=== PATIENT | male | born 1995 | race Caucasian/White ===

== ENCOUNTER 2020-01-10 15:09 | Emergency (ER) | payer SELFPAY ==
[2020-01-10 15:39] VITALS: BP 165/108; PULSE 109; O2SAT 97
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
[2020-01-10 16:07] LABS: Appearance CLEAR (CLEAR); Bilirubin NEGATIVE (NEGATIVE); Blood NEGATIVE Ery/ul (0-5); Glucose NEGATIVE (NEGATIVE); Ketones NEGATIVE (NEGATIVE); Leukocyte Esterase NEGATIVE (NEGATIVE); Mucus SLIGHT /HPF (NEGATIVE); Nitrite NEGATIVE (NEGATIVE); Protein,Urine Dip NEGATIVE (Negative); Specific Gravity 1.005 (1.005-1.025); Urobilinogen NEGATIVE mg/dL (0-1)
[2020-01-10 16:14] LABS: Amphetamine,Urine NEGATIVE (NEGATIVE); Barbiturate,Urine NEGATIVE (NEGATIVE); Benzodiazepine,Urine NEGATIVE (NEGATIVE); Cocaine,Urine NEGATIVE (NEGATIVE); Methadone,Urine NEGATIVE (NEGATIVE); Opiate,Urine NEGATIVE (NEGATIVE); PCP,Urine NEGATIVE (NEGATIVE); THC,Urine NEGATIVE (NEGATIVE)
== END 2020-01-10 16:20 | disposition home or self-care (01) ==
LOC: ED 15:09
DX: Z02.89 Encounter for other administrative examinations (principal)
CPT/HCPCS: 80307; 81001; 99283

== ENCOUNTER 2023-11-09 16:38 | Emergency (ER) | payer MEDICAID ==
[2023-11-09] MEDS ORDERED: MORPHINE SULFATE 2 MG INJ ONE (17:18)
[2023-11-09] MEDS ORDERED: Sodium Chloride 0.9% 1000 ML 1,000 ML ONE (17:18)
[2023-11-09] MEDS ORDERED: Zofran 4 MG/2 ML VIAL ONE (17:18)
[2023-11-09 17:21] LABS: Absolute Neutrophil Ct (ANC) 10.43 x10^3/uL (1.78-5.38); BASOPHIL % 0.2 % (0.2-1.2); Basophil (Absolute #) 0.03 x10^3/uL (0.01-0.08); Eosinophil % 0.6 % (0.8-7.0); Eosinophil (Absolute #) 0.08 x10^3/uL (0.04-0.54); Hematocrit 48.8 % (40.1-51.0); IMMATURE GRAN # 0.05 x10^3u/L (0.001-0.031); IMMATURE GRAN % 0.4 % (0.001-0.429); Lymphocyte (Absolute #) 1.47 x10^3/uL (1.32-3.57); Lymphocytes % 11.6 % (21.8-53.1); Mean Cell Volume 88.6 fL (79.0-92.2); Mean Corpuscular Hemoglobin 30.9 pg (25.7-32.2); Mean Corpuscular Hgb Concent. 34.8 g/dL (32.3-36.5); Mean Platelet Volume 10.5 fL (9.4-12.4); Monocyte (Absolute #) 0.59 x10^3/uL (0.30-0.82); Monocytes % 4.7 % (5.3-12.2); Neutrophil % 82.5 % (34.0-67.9); Platelet Count 428 x10^3/uL (163-337); Red Blood Count 5.51 x10^6/uL (4.63-6.08); Red Cell Distribution Width 12.6 % (11.6-14.4); White Blood Count 12.7 x10^3/uL (4.23-9.07)
[2023-11-09] MEDS: Sodium Chloride 0.9% 1000 ML 1,000 ML IV STA (17:21)
[2023-11-09] MEDS: Zofran 4 MG/2 ML VIAL IV ONE (17:23)
[2023-11-09] MEDS: MORPHINE SULFATE 2 MG INJ IV ONE (17:24)
[2023-11-09 17:25] LABS: ANION GAP 19.6 MEQ/L (5-15); BILIRUBIN,TOTAL 1.8 mg/dL (0.2-1.3); Calcium 9.8 mg/dL (8.4-10.2); Creatinine 1 1.07 mg/dL (0.66-1.25); EST GLOMERULAR FILTRATION RATE 95.7 ML/MIN; Potassium 3.8 mmol/L (3.5-5.1); Total Protein 8.4 g/dL (6.3-8.2)
[2023-11-09 17:57] LABS: Amphetamine,Urine NEGATIVE (NEGATIVE); Barbiturate,Urine NEGATIVE (NEGATIVE); Benzodiazepine,Urine NEGATIVE (NEGATIVE); Cocaine,Urine NEGATIVE (NEGATIVE); Methadone,Urine NEGATIVE (NEGATIVE); Opiate,Urine NEGATIVE (NEGATIVE); PCP,Urine NEGATIVE (NEGATIVE); THC,Urine POSITIVE (NEGATIVE)
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
[2023-11-09 20:04] VITALS: O2SAT 99
[2023-11-09 20:31] VITALS: BP 132/79; PULSE 83; RESP 18
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
== END 2023-11-09 20:37 | disposition home or self-care (01) ==
LOC: ED 16:38
DX: Z04.3 Encounter for examination and observation following other accident (principal); R11.2 Nausea with vomiting, unspecified; E86.0 Dehydration; D72.829 Elevated white blood cell count, unspecified; D75.839 Thrombocytosis, unspecified; R74.01 Elevation of levels of liver transaminase levels; F12.90 Cannabis use, unspecified, uncomplicated; M25.512 Pain in left shoulder; R10.12 Left upper quadrant pain; M25.562 Pain in left knee
CPT/HCPCS: 36000; 36415; 70450; 73030; 73502; 74177; 80053; 80307; 82077; 85025; 96374; 96375; 99284; J2270; J2405

== ENCOUNTER 2024-04-15 02:33 | Emergency (ER) | payer MEDICAID ==
--- NOTE | 2024-04-15 02:54 | ERPHSYRPT ---
- History of Present Illness Time Seen by Provider: 04/15/24 02:45 Historian: patient Exam Limitations: no limitations Physician History: 29-year-old male with history of psychosis not taking any medication presented in the ER with complaint of left lower quadrant/left hip pain since yesterday with progressive worsening, moderate to severe sharp shooting with radiation all across abdomen, rates 10/10 intensity currently, aggravated with ambulation movements, associated with nausea and dry heaving. Denies any constipation or diarrhea. No urinary complaints. No history of kidney stones. Does report history of hip arthritis Denies any back pain, numbness tingling of lower extremities, bowel or bladder control. Allergies/Adverse Reactions: No Known Drug Allergies Allergy (Verified 01/10/20 15:21) Hx Influenza Vaccination/Date Given: No Hx Pneumococcal Vaccination/Date Given: No - Review of Systems Constitutional: No Symptoms Ears, Nose, & Throat: No Symptoms Respiratory: No Symptoms Cardiac: No Symptoms Abdominal/Gastrointestinal: Abdominal Pain, Nausea Musculoskeletal: Arthralgias, Joint Pain Skin: No Symptoms Neurological: No Symptoms Endocrine: No Symptoms Hematologic/Lymphatic: No Symptoms - Past Medical History Pertinent Past Medical History: No (unknown) Neurological History: No Pertinent History ENT History: No Pertinent History Cardiac History: No Pertinent History Respiratory History: No Pertinent History Endocrine Medical History: No Pertinent History Musculoskeletal History: No Pertinent History GI Medical History: No Pertinent History History: No Pertinent History Psycho-Social History: No Pertinent History Male Reproductive Disorders: No Pertinent History Other Medical History: pt uncooperative - Past Surgical History Past Surgical History: No (unknown) Neuro Surgical History: No Pertinent History Cardiac: No Pertinent History Respiratory: No Pertinent History Gastrointestinal: No Pertinent History Genitourinary: No Pertinent History Musculoskeletal: No Pertinent History Male Surgical History: No Pertinent History - Social History Smoking Status: Former smoker Exposure to second hand smoke: No Drug Use: none Patient Lives Alone: No - Nursing Vital Signs Nursing Vital Signs: Initial Vital Signs Temperature 98.1 F 04/15/24 02:51 Pulse Rate 94 H 04/15/24 02:51 Respiratory Rate 18 04/15/24 02:51 Blood Pressure 133/102 04/15/24 02:51 O2 Sat by Pulse Oximetry 98 04/15/24 02:51 Pain Scale Pain Intensity 10 - Physical Exam General Appearance: no apparent distress, alert Eye Exam: PERRL/EOMI Neck Exam: normal inspection, full range of motion Respiratory Exam: normal breath sounds, lungs clear Cardiovascular Exam: regular rate/rhythm, normal heart sounds Gastrointestinal/Abdomen Exam: soft, normal bowel sounds, tenderness (Left lower quadrant/hip area) Back Exam: normal inspection Extremity Exam: normal inspection, normal range of motion, pelvis stable Neurologic Exam: alert, oriented x 3, cooperative Skin Exam: normal color SpO2 Interpretation: normal O2 Delivery: Room Air Ordered Tests: Active Orders 24 hr Category Date Time Status IV Insertion STAT Care 04/15/24 02:50 Active NPO (ED) STAT Care 04/15/24 02:50 Active ABDOMEN AND PELVIS W/0 CONTRAS [CT] Stat Exams 04/15/24 02:50 Completed CBC W DIFF Stat Lab 04/15/24 03:20 Completed CMP Stat Lab 04/15/24 03:20 Completed LIPASE Stat Lab 04/15/24 03:20 Completed UA W/RFX UR CULTURE Stat Lab 04/15/24 02:50 Ordered Medication Summary Discontinued Medications Generic Name Dose Route Start Last Admin Trade Name Mikaela PRN Reason Stop Dose Admin Sodium Chloride 1,000 mls @ 999 mls/hr 04/15/24 02:50 04/15/24 03:53 Sodium Chloride 0.9% 1000 Ml IV 04/15/24 03:50 999 mls/hr .Q1H1M STA Administration Sodium Chloride Confirm 04/15/24 03:20 Sodium Chloride 0.9% 1000 Ml Administered 04/15/24 03:21 Dose 1,000 mls @ ud .ROUTE .STK-MED ONE Ketorolac Tromethamine 30 mg 04/15/24 02:50 04/15/24 03:23 Ketorolac Tromethamine 30 Mg/Ml Inj IV 04/15/24 02:51 30 mg STAT ONE Administration Ketorolac Tromethamine Confirm 04/15/24 03:19 Ketorolac Tromethamine 30 Mg/Ml Inj Administered 04/15/24 03:20 Dose 30 mg .ROUTE .STK-MED ONE Morphine Sulfate 4 mg 04/15/24 02:50 04/15/24 03:22 Morphine Sulfate 4 Mg/Ml Injection IV 04/15/24 02:51 4 mg STAT ONE Administration Morphine Sulfate Confirm 04/15/24 03:19 Morphine Sulfate 4 Mg/Ml Injection Administered 04/15/24 03:20 Dose 4 mg .ROUTE .STK-MED ONE Ondansetron HCl 4 mg 04/15/24 02:50 04/15/24 03:23 Ondansetron Hcl 4 Mg/2 Ml Vial IV 04/15/24 02:51 4 mg STAT ONE Administration Ondansetron HCl Confirm 04/15/24 03:19 Ondansetron Hcl 4 Mg/2 Ml Vial Administered 04/15/24 03:20 Dose 4 mg .ROUTE .STK-MED ONE Oseltamivir Phosphate 75 mg 04/15/24 04:51 04/15/24 04:54 Oseltamivir 75 Mg Cap PO 04/15/24 04:52 75 mg STAT ONE Administration Oseltamivir Phosphate Confirm 04/15/24 04:53 Oseltamivir 75 Mg Cap Administered 04/15/24 04:54 Dose 75 mg PO .STK-MED ONE Lab/Rad Data: Laboratory Result Diagrams 04/15/24 03:20 04/15/24 03:20 Laboratory Results 04/15/24 04/15/24 04/15/24 Range/Units 03:20 03:20 03:20 WBC 7.5 (4.23-9.07) x10^3/uL RBC 5.49 (4.63-6.08) x10^6/uL Hgb 16.3 (13.7-17.5) g/dL Hct 47.4 (40.1-51.0) % MCV 86.3 (79.0-92.2) fL MCH 29.7 (25.7-32.2) pg MCHC 34.4 (32.3-36.5) g/dL RDW 12.7 (11.6-14.4) % Plt Count 358 H (163-337) x10^3/uL MPV 9.8 (9.4-12.4) fL Gran % 59.3 (34.0-67.9) % Immature Gran % (Auto) 0.3 (0.001-0.429) % Nucleat RBC Rel Count 0.0 (0.00-0.2) % Eos # (Auto) 0.08 (0.04-0.54) x10^3/uL Immature Gran # (Auto) 0.02 (0.001-0.031) x10^3u/L Absolute Lymphs (auto) 2.33 (1.32-3.57) x10^3/uL Absolute Monos (auto) 0.57 (0.30-0.82) x10^3/uL Absolute Nucleated RBC 0.00 (0.00-0.012) x10^3u/L Lymphocytes % 31.3 (21.8-53.1) % Monocytes % 7.7 (5.3-12.2) % Eosinophils % 1.1 (0.8-7.0) % Basophils % 0.3 (0.2-1.2) % Absolute Granulocytes 4.43 (1.78-5.38) x10^3/uL Basophils # 0.02 (0.01-0.08) x10^3/uL Sodium 140 (135-145) mmol/L Potassium 3.5 (3.5-5.1) mmol/L Chloride 104 (98-107) mmol/L Carbon Dioxide 21 L (22-30) mmol/L Anion Gap 17.9 H (5-15) MEQ/L BUN 18 (9-20) mg/dL Creatinine 0.81 (0.66-1.25) mg/dL Estimated GFR 120.9 ML/MIN Glucose 129 H (74-106) mg/dL Calcium 9.4 (8.4-10.2) mg/dL Total Bilirubin 0.90 (0.2-1.3) mg/dL AST 73 H (17-59) U/L ALT 78 H (0-50) U/L Alkaline Phosphatase 81 (38-126) U/L Serum Total Protein 7.8 (6.3-8.2) g/dL Albumin 4.9 (3.5-5.0) g/dL Lipase 110 (23-300) U/L Influenza Type A Ag POSITIVE A (NEGATIVE) Influenza Type B Ag NEGATIVE (NEGATIVE) RSV (PCR) NEGATIVE (NEGATIVE) SARS-CoV-2 (PCR) NEGATIVE (NEGATIVE) - Progress Progress: improved Progress Note: 04/15/24 04:56 29-year-old is evaluated in the ER for left lower quadrant abdominal pain with nausea and dry heaving. Patient is given fluids and symptomatic treatment, on reevaluation his pain is resolved. Workup showed normal white count, chemistries with some element of dehydration but otherwise fairly unremarkable. CT abdomen pelvis is negative for any acute abdominal pelvic findings. Patient refused to have urinalysis despite asking multiple times and wants to go home. Patient has positive influenza A and started on Tamiflu. Recommended Tylenol ibuprofen as needed and outpatient follow-up. Discussed signs symptoms of worsening needing return to ER which he seems understanding. Stable for discharge. Counseled pt/family regarding: lab results, diagnosis, need for follow-up, rad results, smoking cessation Medical Desision Making - Independent Historian Additional History obtained from: Mother - Diagnostic Testing Diagnostic test were ordered, analyzed, and reviewed by me: Yes Radiological Interpretation: Reviewed by me - Risk of complications The pt has a mod risk of morbidity or mortality based on: Need for prescription drug management - Departure Departure Disposition: Home Clinical Impression: Influenza A, LLQ abdominal pain Condition: Stable Critical Care Time: No Referrals: DOCTOR,NO FAMILY [Primary Care Provider] - Follow up with PCP 1 day Instructions: Flu in adults - ED discharge instructions, Abdominal pain in adults - ED discharge instructions Additional Instructions: Take Tylenol/ibuprofen as needed. Follow-up with primary care for reevaluation. Return to ER for intractable abdominal pain nausea vomiting etc. Prescriptions: Ibuprofen 600 mg PO Q6HPRN PRN 10 Days #20 tablet PRN Reason: Pain Oseltamivir 75 mg [Tamiflu 75MG Capsule] 75 mg PO BID #10 cap
[2024-04-15 03:05] VITALS: TEMP 98.1
[2024-04-15] MEDS ORDERED: TORAdol 30 mg Injection ONE (03:19)
[2024-04-15] MEDS ORDERED: MORPHINE SULFATE 4 MG INJ ONE (03:19)
[2024-04-15] MEDS ORDERED: Zofran 4 MG/2 ML VIAL ONE (03:19)
[2024-04-15] MEDS ORDERED: Sodium Chloride 0.9% 1000 ML 1,000 ML ONE (03:20)
[2024-04-15 03:22] LABS: Absolute Neutrophil Ct (ANC) 4.43 x10^3/uL (1.78-5.38); BASOPHIL % 0.3 % (0.2-1.2); Basophil (Absolute #) 0.02 x10^3/uL (0.01-0.08); Eosinophil % 1.1 % (0.8-7.0); Eosinophil (Absolute #) 0.08 x10^3/uL (0.04-0.54); Hematocrit 47.4 % (40.1-51.0); Hemoglobin 16.3 g/dL (13.7-17.5); IMMATURE GRAN # 0.02 x10^3u/L (0.001-0.031); IMMATURE GRAN % 0.3 % (0.001-0.429); Lymphocyte (Absolute #) 2.33 x10^3/uL (1.32-3.57); Lymphocytes % 31.3 % (21.8-53.1); Mean Cell Volume 86.3 fL (79.0-92.2); Mean Corpuscular Hemoglobin 29.7 pg (25.7-32.2); Mean Corpuscular Hgb Concent. 34.4 g/dL (32.3-36.5); Mean Platelet Volume 9.8 fL (9.4-12.4); Monocyte (Absolute #) 0.57 x10^3/uL (0.30-0.82); Monocytes % 7.7 % (5.3-12.2); Neutrophil % 59.3 % (34.0-67.9); Platelet Count 358 x10^3/uL (163-337); Red Blood Count 5.49 x10^6/uL (4.63-6.08); Red Cell Distribution Width 12.7 % (11.6-14.4); White Blood Count 7.5 x10^3/uL (4.23-9.07)
[2024-04-15] MEDS: MORPHINE SULFATE 4 MG INJ IV ONE (03:22)
[2024-04-15] MEDS: TORAdol 30 mg Injection IV ONE (03:23)
[2024-04-15] MEDS: Zofran 4 MG/2 ML VIAL IV ONE (03:23)
[2024-04-15 03:34] LABS: ALBUMIN 4.9 g/dL (3.5-5.0); ANION GAP 17.9 MEQ/L (5-15); BILIRUBIN,TOTAL 0.9 mg/dL (0.2-1.3); Calcium 9.4 mg/dL (8.4-10.2); Creatinine 1 0.81 mg/dL (0.66-1.25); EST GLOMERULAR FILTRATION RATE 120.9 ML/MIN; Potassium 3.5 mmol/L (3.5-5.1); Total Protein 7.8 g/dL (6.3-8.2)
[2024-04-15] MEDS: Sodium Chloride 0.9% 1000 ML 1,000 ML IV STA (03:53)
[2024-04-15 03:58] LABS: INFLUENZA B NEGATIVE (NEGATIVE); RESPIRATORY SYNCTIAL VIRUS NEGATIVE (NEGATIVE); SARS-CoV-2 Xpert Express NEGATIVE (NEGATIVE)
[2024-04-15 04:32] LABS: INFLUENZA A POSITIVE (NEGATIVE)
--- NOTE | 2024-04-15 04:44 | XRAY ---
CLINICAL HISTORY: left hip/LLQ pain COMPARISON: 11/09/2023 TECHNIQUE: Non-contrast CT of the abdomen and pelvis was performed, with the following protocol: axial images, and reconstructed coronal and sagittal images. One of the following dose reduction techniques was utilized for this exam: Automated exposure control, adjustment of the mA and/or kV according to patient size, and use of iterative reconstruction. CTDI 19.45 DLP 1171.22 FINDINGS: Lung bases clear with incidental right middle lobe calcified granuloma. Abdomen: Liver: Enlarged right lobe. No focal lesions, cysts, or masses were identified. Gallbladder and Biliary System: The gallbladder is normal in size and shape. No wall thickening, pericholecystic fluid, or gallstones were identified. Pancreas: Pancreatic head, body, and tail are visualized and appear normal in size and density. No pancreatic masses or calcifications were noted. Spleen: Normal in size, shape, and density. No splenic lesions or masses were identified. Tiny calcified granulomas. Appendix: The appendix is normal in size without tin appendiceal fat stranding, and without an appendicolith. No evidence of appendiceal abscess or perforation. Kidneys and Adrenal Glands: Both kidneys are normal in size, shape, and position. Cortical thickness is within normal limits. No renal calculi or hydronephrosis. Small left renal cortical cysts. Adrenal glands are unremarkable. Abdominal Aorta and Vessels: The abdominal aorta and major branches are patent without evidence of an aneurysm or significant atherosclerosis. Pelvis: Urinary Bladder: Normal in contour and wall thickness. No intraluminal lesions. Prostate: Normal in size and contour. No masses or abnormal thickening. Seminal Vesicles: Normal appearance without abnormal enlargement or mass. Peritoneal and Retroperitoneal Structures: No free fluid or abnormal fluid collections were identified within the abdomen or pelvis. No lymphadenopathy was noted. Bowel: The visualized bowel loops are normal in caliber and appearance. No evidence of bowel obstruction or wall thickening. Suggested small hiatus hernia. Bones and Soft Tissues: Pelvic bones and soft tissues are unremarkable. No fractures or abnormal masses were identified. Incidental left L5 spondylolysis without listhesis IMPRESSION: No evidence of acute intra-abdominal pathology. No interval changes. Electronically Signed by: Fabrice Burks MD. (04/15/2024 04:41:07 EST)
[2024-04-15] MEDS ORDERED: Tamiflu 75MG Capsule PO ONE (04:53)
[2024-04-15] MEDS: Tamiflu 75MG Capsule PO ONE (04:54)
[2024-04-15 05:28] LABS: Appearance Clear (Clear); Bacteria None Seen /HPF (None Seen); Bilirubin Negative (Negative); Blood Negative (Negative); Epithelial Cells None Seen /HPF (None Seen); Glucose, Urine Negative (Negative); Ketones 40 (Negative); Leukocyte Esterase Negative (Negative); Nitrite Negative (Negative); Protein,Urine Dip 30 (Negative); RBC 0-2 /HPF (0-5); Specific Gravity >=1.030 (1.005-1.030); WBC 0-2 /HPF (0-5)
[2024-04-15 05:40] LABS: Amphetamine,Urine NEGATIVE (NEGATIVE); Barbiturate,Urine NEGATIVE (NEGATIVE); Benzodiazepine,Urine NEGATIVE (NEGATIVE); Cocaine,Urine NEGATIVE (NEGATIVE); Methadone,Urine NEGATIVE (NEGATIVE); Opiate,Urine POSITIVE (NEGATIVE); PCP,Urine NEGATIVE (NEGATIVE); THC,Urine POSITIVE (NEGATIVE)
[2024-04-15 05:45] VITALS: BP 142/101; PULSE 68; RESP 18; O2SAT 98
== END 2024-04-15 05:43 | disposition home or self-care (01) ==
LOC: ED 02:33
DX: J10.1 Influenza due to other identified influenza virus with other respiratory manifestations (principal); R10.32 Left lower quadrant pain; M25.552 Pain in left hip; Z79.899 Other long term (current) drug therapy
CPT/HCPCS: 0241U; 36415; 74176; 80053; 80307; 81001; 83690; 85025; 96374; 96375; 99284; J1885; J2270; J2405; A9270-GY

== ENCOUNTER 2024-11-29 10:15 | Emergency (ER) | payer OTHER ==
[2024-11-29 10:31] VITALS: RESP 16; TEMP 98.2; O2SAT 99
--- NOTE | 2024-11-29 10:40 | ERPHSYRPT ---
- History of Present Illness Time Seen by Provider: 11/29/24 10:36 Source: patient Exam Limitations: no limitations Patient Subjective Stated Complaint: patient complains of right upper/rear toothache, patient stated he tried to call the dentist but was unable to get in Triage Nursing Assessment: patient presents to ed via private vehicle with complaints of toothache to right upper/rear tooth, patient's vitals wnl, skin n/w/d, patient complains of increased pain when eating, patient alert and oriented x 4 Physician History: 29-year-old male presents to the emergency room with dental ache to his upper right teeth he reports he is has a dentist he is supposed to get some extractions and potential implants he reports he still smokes has not taken any Tylenol or Motrin but is tried Anbesol for pain control denies any fevers denies any discharge patient reports he is having pain upon eating solid foods now in the ED for further eval Timing/Duration: yesterday Severity: mild Associated Symptoms: No nausea, No vomiting, No cough, No headaches, No loss of appetite Allergies/Adverse Reactions: No Known Drug Allergies Allergy (Verified 11/29/24 10:28) Home Medications: Olanzapine 5 mg [zyPREXA 5MG TABLET] 5 mg PO DAILY 11/15/24 [History] hydrOXYzine pamoate [Hydroxyzine Pamoate] 50 mg PO DAILY 11/15/24 [History] Hx Tetanus, Diphtheria Vaccination/Date Given: No Hx Influenza Vaccination/Date Given: No Hx Pneumococcal Vaccination/Date Given: No Travel Risk - International Travel Have you traveled outside of the country in past 3 weeks: No - Emerging Infectious Disease Are you exhibiting symptoms associated with any current EIDs: No - Review of Systems Constitutional: No Fever, No Chills Eyes: No Symptoms, Foreign Body Sensation Ears, Nose, & Throat: Mouth Pain Respiratory: No Cough, No Dyspnea Cardiac: No Chest Pain, No Edema, No Syncope Abdominal/Gastrointestinal: No Abdominal Pain, No Nausea, No Vomiting, No Diarrh ea Genitourinary Symptoms: No Dysuria Musculoskeletal: No Back Pain, No Neck Pain Skin: No Rash Neurological: No Dizziness, No Focal Weakness, No Sensory Changes Psychological: No Symptoms Endocrine: No Symptoms All Other Systems: Reviewed and Negative - Past Medical History Pertinent Past Medical History: Yes (unknown) Neurological History: No Pertinent History ENT History: No Pertinent History Cardiac History: No Pertinent History Respiratory History: No Pertinent History Endocrine Medical History: No Pertinent History Musculoskeletal History: No Pertinent History GI Medical History: No Pertinent History History: No Pertinent History Psycho-Social History: Anxiety, Other Male Reproductive Disorders: No Pertinent History Other Medical History: psychosis - Past Surgical History Past Surgical History: Yes (unknown) Neuro Surgical History: No Pertinent History Cardiac: No Pertinent History Respiratory: No Pertinent History Gastrointestinal: No Pertinent History Genitourinary: No Pertinent History Musculoskeletal: No Pertinent History Male Surgical History: No Pertinent History - Social History Smoking Status: Former smoker Exposure to second hand smoke: No Drug Use: marijuana - Social Determinants of Health Will the patient participate in the screening: Declined to provide - Nursing Vital Signs Nursing Vital Signs: Initial Vital Signs Temperature 98.2 F 11/29/24 10:16 Pulse Rate 81 11/29/24 10:16 Respiratory Rate 16 11/29/24 10:16 O2 Sat by Pulse Oximetry 99 11/29/24 10:16 Pain Scale Pain Intensity 10 - Physical Exam General Appearance: no apparent distress, alert Eye Exam: PERRL/EOMI, eyes nml inspection Ears, Nose, Throat Exam: TMs normal, moist mucous membranes, other (Dental caries poor dentition with dental infection) Neck Exam: normal inspection, non-tender, supple, full range of motion Respiratory Exam: normal breath sounds, lungs clear, No respiratory distress Cardiovascular Exam: regular rate/rhythm, normal heart sounds, normal peripheral pulses Gastrointestinal/Abdomen Exam: soft, normal bowel sounds, No tenderness, No mass Back Exam: normal inspection, normal range of motion, No CVA tenderness, No vertebral tenderness Extremity Exam: normal inspection, normal range of motion, pelvis stable Neurologic Exam: alert, oriented x 3, cooperative, normal mood/affect, nml cerebellar function, nml station & gait, sensation nml, No motor deficits Skin Exam: normal color, warm, dry, No rash Lymphatic Exam: No adenopathy SpO2: 99 - Course Nursing assessment & vital signs reviewed: Yes - Progress Progress Note: 11/29/24 10:37 Patient will be given oral wash as well as antibiotics and as needed pain control advised Tylenol Motrin every 6 and tramadol for breakthrough - Departure Departure Disposition: Home Clinical Impression: Dental infection Condition: Stable Critical Care Time: No Referrals: DOCTOR,NO FAMILY [Primary Care Provider, UNKNOWN] - Follow up/PCP as directed Instructions: Tooth Abscess (DC), Tooth Decay, Adult (DC), Dental Pain (DC) Prescriptions: Chlorhexidine Gluconate 15 ml MM BID #473 ml Penicillin V Potassium 500 mg PO BID #20 tablet Tramadol HCl 50 mg [Ultram 50 mg] 50 mg PO DAILY PRN PRN 4 Days #4 tablet MDD 1 PRN Reason: Pain
[2024-11-29] MEDS ORDERED: TYLENOL 325 MG ONE (10:46)
[2024-11-29] MEDS ORDERED: MOTRIN 600 MG ONE (10:46)
[2024-11-29 10:48] VITALS: BP 138/76; PULSE 74
[2024-11-29] MEDS: MOTRIN 600 MG PO ONE (10:49)
[2024-11-29] MEDS: TYLENOL 325 MG PO STA (10:49)
== END 2024-11-29 10:54 | disposition home or self-care (01) ==
LOC: ED 10:15
DX: K04.7 Periapical abscess without sinus (principal); K08.89 Other specified disorders of teeth and supporting structures; Z79.891 Long term (current) use of opiate analgesic; Z79.899 Other long term (current) drug therapy; Z72.0 Tobacco use